=== PATIENT | male | born 1960 | race Native Hawaiian/Other Pacific Islander ===

== ENCOUNTER 2017-10-17 00:24 | Emergency (ER) | payer MEDICAID ==
--- NOTE | 2017-10-17 00:31 | ED Physician Documentation ---
PD HPI CHEST PAIN - Stated complaint Stated Complaint: CHEST PX - Chief complaint Chief Complaint: Cardiac - History obtained from History obtained from: Patient - History of Present Illness Timing - onset: How many hours ago (2) Timing - details: Abrupt onset, Still present Quality: Pressure, Sharp Location: Left chest Radiation: Left upper extremity Improved by: Nothing Associated symptoms: Shortness of air. No: Diaphoresis, Nausea, Vomiting Similar symptoms before: Has not had sx before Recently seen: Not recently seen - Additional information Additional information: patient is a 57 year old male with no significant past medical history who is presenting to the emergency department for chest pain. patient states that he got up about two hours ago, had a Popsicle and developed left sided chest pain. patient states that it is severe in nature and radiates to his left arm. Review of Systems Constitutional: denies: Fever, Chills Eyes: reports: Reviewed and negative Ears: reports: Reviewed and negative Nose: reports: Reviewed and negative Throat: reports: Reviewed and negative Cardiac: reports: Chest pain / pressure. denies: Palpitations, Pedal edema Respiratory: denies: Dyspnea, Cough, Wheezing GI: denies: Nausea, Vomiting : reports: Reviewed and negative Skin: reports: Reviewed and negative Musculoskeletal: reports: Extremity pain Neurologic: reports: Reviewed and negative Psychiatric: reports: Reviewed and negative PD PAST MEDICAL HISTORY - Past Medical History Cardiovascular: Hypertension GI: GERD Musculoskeletal: Other - Past Surgical History Past Surgical History: Yes General: Appendectomy - Present Medications Home Medications: Ambulatory Orders Medication Instructions Recorded Confirmed No Known Home Medications [No 11/06/15 10/17/17 Known Home Medications] - Allergies Allergies/Adverse Reactions: Allergies Allergy/AdvReac Type Severity Reaction Status Date / Time No Known Drug Allergies Allergy Verified 10/17/17 00:31 - Social History Does the pt smoke?: Yes Smoking Status: Current some day smoker Does the pt drink ETOH?: Yes Does the pt have substance abuse?: Yes - Immunizations Immunizations are current?: Yes PD ED PE NORMAL - HEENT HEENT: Atraumatic - Respiratory Respiratory: No respiratory distress, Clear bilaterally - Abdomen Abdomen: Soft, Non distended - Derm Derm: Normal color, Warm and dry - Extremities Extremities: No edema - Neuro Neuro: Alert and oriented X 3, Normal speech PD ED PE EXPANDED - General General: Alert, In Pain - HEENT HEENT: Dry mucous membranes - Neck Neck: JVD present - Cardiac Cardiac: Tachy Results - Vitals Vitals: Vital Signs - 24 hr 10/17/17 10/17/17 00:25 00:41 Temperature 37.1 C 36.7 C Heart Rate 119 H 120 H Respiratory 18 23 Rate Blood Pressure 191/129 H 200/133 H O2 Saturation 100 95 Oxygen O2 Source Room air Oxygen Flow Rate 2 - EKG (time done) 0029 Rate: Rate (enter#) (114) Rhythm: Sinus tachycardia [place]: Normal Ischemia: ST elevation c/w ischemia, ST depression Other comments: Other comments (posterior inferior STEMI) Compare to prior EKG: Old EKG unavailable Computer interpretation: Agree with computer - Labs Labs: Laboratory Tests 10/17/17 10/17/17 10/17/17 00:36 00:36 00:36 WBC 11.1 H RBC 5.30 Hgb 15.1 Hct 46.0 MCV 86.8 MCH 28.5 MCHC 32.8 RDW 13.6 Plt Count 239 MPV 8.0 Neut # 8.6 H Lymph # 0.9 L [place] # 1.2 H Eos # 0.3 Baso # 0.1 Absolute Nucleated RBC 0.00 Nucleated RBC % 0.0 PT INR APTT Sodium 133 L Potassium 3.8 Chloride 99 L Carbon Dioxide 27 Anion Gap 7.0 BUN 18 Creatinine 1.4 H Estimated GFR (MDRD) 52 L Glucose 135 H Calcium 8.7 Total Bilirubin 0.5 AST 33 ALT 39 Alkaline Phosphatase 73 CK-MB (CK-2) 7.9 H Troponin I 1.58 H* B-Natriuretic Peptide Total Protein 7.5 Albumin 3.9 Globulin 3.6 Albumin/Globulin Ratio 1.1 Lipase 29 10/17/17 10/17/17 00:36 00:36 WBC RBC Hgb Hct MCV MCH MCHC RDW Plt Count MPV Neut # Lymph # [place] # Eos # Baso # Absolute Nucleated RBC Nucleated RBC % PT 10.7 INR 0.9 APTT 28.6 Sodium Potassium Chloride Carbon Dioxide Anion Gap BUN Creatinine Estimated GFR (MDRD) Glucose Calcium Total Bilirubin AST ALT Alkaline Phosphatase CK-MB (CK-2) Troponin I B-Natriuretic Peptide 151 H Total Protein Albumin Globulin Albumin/Globulin Ratio Lipase PD MEDICAL DECISION MAKING - ED course Complexity details: reviewed old records, reviewed results, re-evaluated patient , considered differential, d/w patient, d/w security consultant ED course: Patient was immediately seen and examined at bedside. ekg was performed and was consistent with inferior/posterior [place]. STEMI was called. [facility] was contacted and the case was discussed with Dr. Sweeney who agreed with asprin and heparin but stated to hold plavix. Patient was placed on a heparin drip, treated with aspirin and morphine. Patient was transferred to [facility] in critical condition. Departure - Departure Disposition: 02 Transfer Acute Care Hosp Clinical Impression: STEMI (ST elevation myocardial infarction) Condition: Critical
[2017-10-17] MEDS ORDERED: ASPIRIN CHEW 81 MG TABLET PO STA (00:32)
[2017-10-17] MEDS ORDERED: HEPARIN 5,000 UNIT/ML VIAL IVP STA (00:32)
[2017-10-17] MEDS ORDERED: HEPARIN 25000UNITS/500ML (D5W) 25,000 UNIT/500 ML BAG IV STA (00:32)
[2017-10-17] MEDS ORDERED: MORPHINE 10 MG/ML VIAL IVP STA (00:34)
[2017-10-17] MEDS ORDERED: ASPIRIN CHEW 81 MG TABLET ONE (00:41)
[2017-10-17] MEDS ORDERED: CLOPIDOGREL 300 MG TABLET PO ONE (00:41)
[2017-10-17] MEDS ORDERED: HEPARIN 5,000 UNIT/ML VIAL ONE (00:41)
[2017-10-17] MEDS ORDERED: NITROGLYCERIN SL 0.4 MG TABLET SL ONE (00:41)
[2017-10-17] MEDS ORDERED: METOPROLOL TARTRATE 50 MG TABLET ONE (00:41)
[2017-10-17 00:42] VITALS: BP 200/133
[2017-10-17] MEDS ORDERED: HEPARIN 25000UNITS/500ML (D5W) 25,000 UNIT/500 ML BAG IV ONE (00:42)
[2017-10-17 00:45] LABS: BASOPHILS # (AUTO) 0.1 10^3/uL (0.0-0.1); BASOPHILS % (AUTO) 0.9 %; EOSINOPHILS # (AUTO) 0.3 10^3/uL (0.0-0.7); EOSINOPHILS % (AUTO) 2.6 %; HGB - HEMOGLOBIN 15.1 g/dL (14.0-18.0); LYMPHOCYTES # (AUTO) 0.9 10^3/uL (1.5-3.5); LYMPHOCYTES % (AUTO) 8.1 %; MEAN CORPUSCULAR HEMOGLOBIN 28.5 pg (27.0-31.0); MEAN CORPUSCULAR HGB CONC 32.8 g/dL (32.0-36.0); MEAN CORPUSCULAR VOLUME 86.8 fL (80.0-94.0); MONOCYTES # (AUTO) 1.2 10^3/uL (0.0-1.0); MONOCYTES % (AUTO) 10.7 %; NEUTROPHILS # (AUTO) 8.6 10^3/uL (1.5-6.6); NEUTROPHILS % (AUTO) 77.7 %; PLT - PLATELET COUNT 239 10^3/uL (130-450); RED CELL DISTRIBUTION WIDTH 13.6 % (12.0-15.0); WHITE BLOOD COUNT 11.1 x10^3/uL (4.8-10.8)
[2017-10-17 00:51] LABS: INR 0.9 (0.8-1.2); PT - PROTHROMBIN TIME 10.7 secs (9.9-12.6)
--- NOTE | 2017-10-17 01:01 | XRAY Preliminary Report ---
Exam: XR CHEST 1 VIEW X-RAY IMPRESSION: 1. No acute abnormality seen in the chest. [facility] SITE ID: [id number]
--- NOTE | 2017-10-17 01:01 | XRAY Report ---
EXAM: CHEST RADIOGRAPHY EXAM DATE: 10/17/2017 12:42 AM. CLINICAL HISTORY: Chest pain. COMPARISON: 05/07/2012. TECHNIQUE: 1 view. FINDINGS: Lungs/Pleura: No alveolar consolidation or pleural effusion seen. No pneumothorax. Mediastinum: Within exam limitations, the cardiomediastinal contour is normal. Other: None. IMPRESSION: 1. No acute abnormality seen in the chest. [facility] Referring Provider Line: [phone] SITE ID: [id number]
[2017-10-17 01:05] LABS: ALBUMIN 3.9 g/dL (3.2-5.5); ALBUMIN/GLOBULIN RATIO 1.1 (1.0-2.2); BILIRUBIN,TOTAL 0.5 mg/dL (0.2-1.0); CALCIUM 8.7 mg/dL (8.5-10.3); CREATININE 1.4 mg/dL (0.6-1.2); TOTAL PROTEIN 7.5 g/dL (6.7-8.2)
[2017-10-17 01:10] LABS: CREATINE KINASE MB 7.9 ng/mL (0.6-6.3)
[2017-10-17 01:15] LABS: TROPONIN I 1.58 ng/mL (<0.49)
[2017-10-17] MEDS ORDERED: METOPROLOL TARTRATE 50 MG TABLET PO STA (01:15)
== END 2017-10-17 00:48 | disposition short-term general hospital (02) ==
LOC: ED 00:24
DX: I21.11 ST elevation (STEMI) myocardial infarction involving right coronary artery (principal); I10 Essential (primary) hypertension; K21.9 Gastro-esophageal reflux disease without esophagitis; F17.200 Nicotine dependence, unspecified, uncomplicated
CPT/HCPCS: 36415; 71045; 80053; 82553; 83690; 83880; 84484; 85025; 85610; 85730; 93005; 96374; 96375; 96376; 99284; 99285; A9270

== ENCOUNTER 2017-10-17 00:49 | Outpatient (CLI) | payer MEDICAID | END 2017-10-17 00:50 | disposition short-term general hospital (02) | LOC: EMS 00:49 | PROVIDERS: ATTEND Surgery | DX: I21.3 ST elevation (STEMI) myocardial infarction of unspecified site (principal) | CPT/HCPCS: A0425; A0427 ==

== ENCOUNTER 2017-10-29 03:29 | Emergency (ER) | payer MEDICAID ==
--- NOTE | 2017-10-29 03:37 | ED Physician Documentation ---
PD HPI ABD PAIN - Stated complaint Stated Complaint: ABD PX - Chief complaint Chief Complaint: Abd Pain - History obtained from History obtained from: Patient - History of Present Illness Timing - onset: How many days ago (2) Timing - duration: Days (2) Timing - details: Abrupt onset, Intermittant Pain level now: 8 Quality: Pain, Other (burning) Location: Epigastric Radiation: Chest (lower chest, midline) Improved by: Other (no ameliorating factors) Worsened by: Other (no exacerbating factors) Associated symptoms: Chest pain. No: Fever, Nausea, Vomiting, Diarrhea, Constipation Similar symptoms before: Has not had sx before (patient says this feels different from the pain he had when he presented to this ED earlier this month) Recently seen: Emergency Dept, Transferred - Additional information Additional information: presented to this ED 10/17/17 with chest pain and transferred to [facility] for inferior wall AR. He had stent placed and was discharged the next day. He presents at this time due to 2 days of episodic epigastric burning radiating to lower anterior midline chest. Review of Systems Constitutional: reports: Reviewed and negative Eyes: reports: Reviewed and negative Ears: reports: Reviewed and negative Nose: reports: Reviewed and negative Cardiac: reports: Chest pain / pressure. denies: Palpitations, Pedal edema, Calf pain Respiratory: reports: Reviewed and negative GI: reports: Abdominal Pain (epigastric burning). denies: Nausea, Vomiting, Constipation, Diarrhea : denies: Dysuria, Frequency Skin: reports: Reviewed and negative Musculoskeletal: reports: Reviewed and negative Neurologic: reports: Reviewed and negative PD PAST MEDICAL HISTORY - Past Medical History Cardiovascular: Hypertension GI: GERD Musculoskeletal: Other - Past Surgical History Past Surgical History: Yes General: Appendectomy - Present Medications Home Medications: Ambulatory Orders Medication Instructions Recorded Confirmed Aspirin Chewable [[place] Hans 1 tab PO DAILY 10/29/17 10/29/17 Aspirin] Atorvastatin Calcium 1 tab PO QPM 10/29/17 10/29/17 Clopidogrel Bisulfate [Clopidogrel] 1 tab PO DAILY 10/29/17 10/29/17 Lisinopril 1 tab PO DAILY 10/29/17 10/29/17 Metoprolol Tartrate 50 mg PO BID 10/29/17 10/29/17 - Allergies Allergies/Adverse Reactions: Allergies Allergy/AdvReac Type Severity Reaction Status Date / Time No Known Drug Allergies Allergy Verified 10/29/17 03:49 - Social History Does the pt smoke?: Yes Smoking Status: Current some day smoker Does the pt drink ETOH?: Yes Does the pt have substance abuse?: Yes - Immunizations Immunizations are current?: Yes - POLST Patient has POLST: No PD ED PE NORMAL - Vitals Vital signs reviewed: Yes - General General: Alert and oriented X 3, No acute distress, Well developed/nourished - HEENT HEENT: Moist mucous membranes - Neck Neck: Supple, no meningeal sign - Cardiac Cardiac: RRR, No murmur, No gallop, No rub - Respiratory Respiratory: No respiratory distress, Clear bilaterally - Abdomen Abdomen: Normal bowel sounds, Soft, Non tender, Non distended - Back Back: No CVA TTP - Derm Derm: Normal color, Warm and dry - Extremities Extremities: No edema - Neuro Neuro: Alert and oriented X 3 Results - Vitals Vitals: Oxygen O2 Source Room air - EKG (time done) #1 Rate: Rate (enter#) (79) Rhythm: NSR [place]: LAD Intervals: Normal IN QRS: LVH Ischemia: ST elevation c/w ischemia (II, III, aVF), Q waves (II, III, aVF), Other (reciprocal changes V2-V5) #2 Rate: Rate (enter#) (77) Rhythm: NSR [place]: LAD Intervals: Normal IN QRS: LVH Ischemia: ST elevation c/w ischemia (II, III, aVF), Q waves (II, III, aVF), Other (reciprocal changes V2-V5) - Labs Labs: Laboratory Tests 10/29/17 10/29/17 10/29/17 03:40 03:40 03:40 WBC 16.0 H RBC 4.98 Hgb 14.1 Hct 42.4 MCV 85.0 MCH 28.4 MCHC 33.4 RDW 13.6 Plt Count 419 MPV 8.1 Neut # 11.6 H Lymph # 2.2 [place] # 1.7 H Eos # 0.3 Baso # 0.2 H Absolute Nucleated RBC 0.01 Nucleated RBC % 0.1 PT 11.0 INR 1.0 APTT 28.9 Sodium 137 Potassium 3.9 Chloride 103 Carbon Dioxide 26 Anion Gap 8.0 BUN 17 Creatinine 1.1 Estimated GFR (MDRD) 69 L Glucose 105 H Calcium 8.9 Total Bilirubin 0.2 AST 33 ALT 55 Alkaline Phosphatase 82 Total Creatine Kinase 125 CK-MB (CK-2) Troponin I Total Protein 7.6 Albumin 3.3 Globulin 4.3 H Albumin/Globulin Ratio 0.8 L Lipase 46 10/29/17 03:40 WBC RBC Hgb Hct MCV MCH MCHC RDW Plt Count MPV Neut # Lymph # [place] # Eos # Baso # Absolute Nucleated RBC Nucleated RBC % PT INR APTT Sodium Potassium Chloride Carbon Dioxide Anion Gap BUN Creatinine Estimated GFR (MDRD) Glucose Calcium Total Bilirubin AST ALT Alkaline Phosphatase Total Creatine Kinase CK-MB (CK-2) 5.2 Troponin I 3.16 H* Total Protein Albumin Globulin Albumin/Globulin Ratio Lipase PD MEDICAL DECISION MAKING - ED course Complexity details: reviewed old records, reviewed results, re-evaluated patient , considered differential, d/w patient ED course: Presents with epigastric pain radiating to midline low chest, had stent placed at [facility] for IWMI. Has EKG changes tonight in inferior leads with reciprocal changes in same leads as previous. Also has elevated troponin. I discussed this case with Dr. Amanda (on-call perl programmer at [facility]), recommends I give either GI cocktail or NTG and he will call back after he reviews joe's EKG. On subsequent discussion, after he reviewed EKG, patient reports pain went from 8 down to 6 but back to [address] Amanda recommends give NTG and to contact [facility] gluten settling tender. I discussed the case with Dr. Waldron, on-call interventionalist at [facility]. He says that if pain is persisting, send patient to [facility]. Unfortunately there are no beds available at [facility]. I then discussed the case again with Dr. Amanda, who advises consideration of sending patient to a different hospital if [facility] has no bed availability (no beds again confirmed with [facility] transfer center). Case d/w on-call perl programmer at [facility]. As there is still question as to whether joe's EKG findings and TNI represent residual findings of previous AR or new/recurrent ischemia/infarction, he recommends transfer patient to [facility] ED and ED physician can repeat these tests and contact cardiology to discuss recommendations based on that set of tests and comparison of those results to the test results obtained here at [facility]. Case D/W Dr. Hyatt (ED physician at [facility]), agrees with transfer to [facility] ED with this plan. Of note, patient reported improvement with SLNTG. surveillance monitor demonstrated frequent skipped beats only after NTG given, but these did not correlate with any symptoms and his blood pressure remained normal. Shortly before ambulance was to arrive for transfer, patient asked to be discharged home. I reviewed with him my recommendation and that of the doctors I had been in contact with (the recommendation being transfer for further testing and possible treatment depending on results of more tests), and he expressed understanding of this but wants to leave AMA. Risks of leaving AMA discussed, including worsening symptoms, heart attack, permanent disability, ; he expresses understanding of these risks and signs AMA form. Patient was very polite and cooperative during ED stay and at time of leaving AMA. I encouraged him to return at any time he wants to be reevaluated. Departure - Departure Disposition: 07 Against Medical Advice Clinical Impression: Chest pain Qualifiers: Chest pain type: unspecified Qualified Code(s): R07.9 - Chest pain, unspecified Condition: Stable Instructions: ED Chest Pain Atypical Unkn Cause Comments: Please return to the emergency department at any time you feel you need to be reevaluated. You should take Prilosec once a day for two weeks. This would likely help your symptoms if they are due to reflux ("heartburn"). Prilosec is an over-the- counter medication and does not require a prescription. Discharge Date/Time: 10/29/17 08:33
[2017-10-29 03:50] LABS: BASOPHILS # (AUTO) 0.2 10^3/uL (0.0-0.1); BASOPHILS % (AUTO) 1.4 %; EOSINOPHILS # (AUTO) 0.3 10^3/uL (0.0-0.7); HGB - HEMOGLOBIN 14.1 g/dL (14.0-18.0); LYMPHOCYTES # (AUTO) 2.2 10^3/uL (1.5-3.5); LYMPHOCYTES % (AUTO) 13.9 %; MEAN CORPUSCULAR HEMOGLOBIN 28.4 pg (27.0-31.0); MEAN CORPUSCULAR HGB CONC 33.4 g/dL (32.0-36.0); MEAN PLATELET VOLUME 8.1 fL (7.4-11.4); MONOCYTES # (AUTO) 1.7 10^3/uL (0.0-1.0); MONOCYTES % (AUTO) 10.4 %; NEUTROPHILS # (AUTO) 11.6 10^3/uL (1.5-6.6); NEUTROPHILS % (AUTO) 72.3 %; PLT - PLATELET COUNT 419 10^3/uL (130-450); RED BLOOD COUNT 4.98 10^6/uL (4.70-6.10); RED CELL DISTRIBUTION WIDTH 13.6 % (12.0-15.0)
[2017-10-29 03:58] LABS: ALBUMIN 3.3 g/dL (3.2-5.5); ALBUMIN/GLOBULIN RATIO 0.8 (1.0-2.2); BILIRUBIN,TOTAL 0.2 mg/dL (0.2-1.0); CALCIUM 8.9 mg/dL (8.5-10.3); CREATININE 1.1 mg/dL (0.6-1.2); TOTAL PROTEIN 7.6 g/dL (6.7-8.2)
[2017-10-29] MEDS ORDERED: MAG HYDROX/AL HYDROX/SIMETH 30 ML UDC PO STA (04:05)
[2017-10-29 04:06] LABS: CREATINE KINASE MB 5.2 ng/mL (0.6-6.3)
[2017-10-29] MEDS ORDERED: PHENobarb/HYOSCY/ATROPINE/SCOP 5 ML UDC PO STA (04:06)
[2017-10-29] MEDS ORDERED: LIDOCAINE VISCOUS 2% 15 ML UDC MM STA (04:06)
[2017-10-29 04:08] LABS: TROPONIN I 3.16 ng/mL (<0.49)
[2017-10-29] MEDS ORDERED: NITROGLYCERIN SL 0.4 MG TABLET SL STA (05:18)
[2017-10-29 07:43] VITALS: BP 130/87
== END 2017-10-29 08:33 | disposition left against medical advice (07) ==
LOC: ED 03:29
DX: R07.9 Chest pain, unspecified (principal); Z53.29 Procedure and treatment not carried out because of patient's decision for other reasons; I10 Essential (primary) hypertension; K21.9 Gastro-esophageal reflux disease without esophagitis; Z79.82 Long term (current) use of aspirin; F17.200 Nicotine dependence, unspecified, uncomplicated
CPT/HCPCS: 36415; 80053; 82550; 82553; 83690; 84484; 85025; 85610; 85730; 93005; 99285; A9270

== ENCOUNTER 2018-08-30 12:58 | Emergency (ER) | payer MEDICAID ==
--- NOTE | 2018-08-30 14:46 | ED Physician Documentation ---
PD HPI DYSPNEA - Stated complaint Stated Complaint: SOA FEVER - Chief complaint Chief Complaint: Resp - History obtained from History obtained from: Patient - History of Present Illness Timing - onset: How many days ago (2) Timing - duration: Days (2) Timing - details: Still present Associated symptoms: Fever, Cough, Chest pain / discomfort (with cough) - Additional information Additional information: The patient is a 58-year-old male, who is a smoker, who presents with cough for at least 2 days, with occasional sputum production. He reports associated shortness of breath, fever and chills, and reports chest pain with coughing. He denies headache, sore throat, nausea or vomiting. He states, "I think I need an antibiotic." He has had similar symptoms in the past. Past medical history is significant for inferior [place] in October 2017. Review of Systems Constitutional: reports: Fever, Chills, Myalgias Ears: denies: Tinnitus/ringing Nose: denies: Congestion Throat: denies: Sore throat Cardiac: reports: Chest pain / pressure (with coughing) Respiratory: reports: Dyspnea, Cough GI: denies: Abdominal Pain, Nausea, Vomiting : denies: Dysuria Skin: denies: Rash Musculoskeletal: denies: Back pain, Extremity swelling Neurologic: denies: Headache PD PAST MEDICAL HISTORY - Past Medical History Cardiovascular: Hypertension, [place] Endocrine/Autoimmune: None GI: GERD Musculoskeletal: Other - Past Surgical History Past Surgical History: Yes General: Appendectomy Cardiovascular: Coronary stent - Present Medications Home Medications: Ambulatory Orders Medication Instructions Recorded Confirmed Aspirin Chewable [[place] [facility] 1 tab PO DAILY 10/29/17 10/29/17 Aspirin] Atorvastatin Calcium 1 tab PO QPM 10/29/17 10/29/17 Clopidogrel Bisulfate [Clopidogrel] 1 tab PO DAILY 10/29/17 10/29/17 Lisinopril 1 tab PO DAILY 10/29/17 10/29/17 Metoprolol Tartrate 50 mg PO BID 10/29/17 10/29/17 Doxycycline Hyclate 100 mg PO BID #20 capsule 08/30/18 Metoprolol Tartrate 50 mg PO BID #60 tablet 08/30/18 - Allergies Allergies/Adverse Reactions: Allergies Allergy/AdvReac Type Severity Reaction Status Date / Time No Known Drug Allergies Allergy Verified 10/29/17 03:49 - Social History Does the pt smoke?: Yes Smoking Status: Current some day smoker Does the pt drink ETOH?: Yes Does the pt have substance abuse?: Yes - Immunizations Immunizations are current?: Yes - POLST Patient has POLST: No PD ED PE NORMAL - Vitals Vital signs reviewed: Yes (hypertensive) - General General: Alert and oriented X 3, Well developed/nourished - HEENT HEENT: Atraumatic, Pharynx benign - Neck Neck: Supple, no meningeal sign, No adenopathy, No JVD - Cardiac Cardiac: RRR, No murmur - Respiratory Respiratory: Clear bilaterally, Other (Coarse sounding cough) - Abdomen Abdomen: Soft, Non tender - Back Back: No CVA TTP - Derm Derm: No rash - Extremities Extremities: No edema, No calf tenderness / cord - Neuro Neuro: Alert and oriented X 3, No motor deficit, Normal speech Results - Vitals Vitals: Oxygen O2 Source Room air - EKG (time done) 13:25 Rate: Rate (enter#) (87) Rhythm: NSR, LAE Intervals: Other (IVCD) Ischemia: ST depression (Borderline ST depression anterior precordial leads, V1- V3.) Compare to prior EKG: Other (Improved compared to previous EKG of 10/29/17.) Computer interpretation: Agree with computer 16:07 Rate: Rate (enter#) (94) Rhythm: NSR Intervals: Other (Nonspecific IVCD) Ischemia: ST depression (<1mm ST depression in posterior leads V2R and V3R.) Compare to prior EKG: Unchanged from prior EKG Computer interpretation: Agree with computer - Labs Labs: Laboratory Tests 08/30/18 08/30/18 08/30/18 15:15 15:15 15:15 WBC 10.9 H RBC 5.92 Hgb 17.0 Hct 51.7 MCV 87.3 MCH 28.7 MCHC 32.8 RDW 13.9 Plt Count 206 MPV 9.0 Neut # (Auto) 7.3 H Lymph # (Auto) 1.9 [place] # (Auto) 1.4 H Eos # (Auto) 0.2 Baso # (Auto) 0.1 Absolute Nucleated RBC 0.01 Nucleated RBC % 0.1 Sodium 136 Potassium 3.6 Chloride 97 L Carbon Dioxide 28 Anion Gap 11.0 BUN 17 Creatinine 1.4 H Estimated GFR (MDRD) 52 L Glucose 109 H Calcium 8.9 Total Bilirubin 0.3 AST 39 ALT 26 Alkaline Phosphatase 87 Troponin I 0.40 Total Protein 8.2 Albumin 3.7 Globulin 4.5 H Albumin/Globulin Ratio 0.8 L Lipase 37 08/30/18 17:55 WBC RBC Hgb Hct MCV MCH MCHC RDW Plt Count MPV Neut # (Auto) Lymph # (Auto) [place] # (Auto) Eos # (Auto) Baso # (Auto) Absolute Nucleated RBC Nucleated RBC % Sodium Potassium Chloride Carbon Dioxide Anion Gap BUN Creatinine Estimated GFR (MDRD) Glucose Calcium Total Bilirubin AST ALT Alkaline Phosphatase Troponin I 0.35 Total Protein Albumin Globulin Albumin/Globulin Ratio Lipase - Rads (name of study) CXR Radiology: Prelim report reviewed, EMP read contemporaneously, See rad report (No infiltrate or effusion.) PD MEDICAL DECISION MAKING - ED course Complexity details: reviewed old records, reviewed results, re-evaluated patient, considered differential, d/w patient, d/w family ED course: The patient's presentation is most consistent with bronchitis, with purulent sputum. His chest x-ray reveals no evidence of pneumonia. He is a cigarette smoker, making him a higher risk patient for bacterial bronchitis. In addition he has persistent hypertension with blood pressure in the 170s over 1 teens. With his history of heart disease, an electrocardiogram was performed and it was abnormal, but actually looked better than previous EKG of October 29, 2017. A troponin level was at the high end of the normal range however, at 0. 40. A second EKG with posterior leads was performed and reveals less than [address] depression in posterior chest leads V2R and V3R. A second troponin level was lower than the first, at 0.35. I doubt acute myocardial infarction, but I am concerned about the patient's persistent hypertension. Treatment in the emergency department included administration of metoprolol 50 mg orally, and doxycycline 100 mg orally. I discussed with him and his the importance of getting his blood pressure under control, and following up with a primary physician. I also discussed the expected course of respiratory illness, antibiotic treatment, outpatient follow-up, as well as potentially worrisome signs or symptoms that should prompt reevaluation in the emergency department. He is being discharged with prescriptions for both metoprolol and doxycycline. I encouraged him to try to stop smoking cigarettes. Departure - Departure Disposition: 01 Home, Self Care Clinical Impression: Bronchitis Hypertension Qualifiers: Hypertension type: unspecified Qualified Code(s): I10 - Essential (primary) hypertension Condition: Stable Instructions: ED COPD Flare, ED Hypertension Conf Out Of Control Follow-Up: [facility] [Provider Group] Prescriptions: Doxycycline Hyclate 100 mg PO BID #20 capsule Metoprolol Tartrate 50 mg PO BID #60 tablet Comments: Take metoprolol twice daily as prescribed. Take doxycycline twice daily as prescribed. You can use ibuprofen, up to 800 mg 3 times daily if needed for fever or discomfort. Try to stop smoking cigarettes. Follow-up with primary physician within 2 weeks if possible, or as soon as you can get an appointment. Call to schedule an appointment. Return to the emergency department if you develop increasing difficulty breathing, persistent chest pain, or otherwise worsening symptoms. Discharge Date/Time: 08/30/18 19:06
--- NOTE | 2018-08-30 15:44 | XRAY Report ---
Reason: dyspnea, cough. Procedure Date: 08/30/2018 Accession Number: [id number] / [id number] Procedure: XR - Chest 2 View X-Ray CPT Code: 74083 FULL RESULT: EXAM: CHEST RADIOGRAPHY EXAM DATE: 08/30/2018 03:15 PM. CLINICAL HISTORY: Dyspnea, cough. COMPARISON: CHEST 1 VIEW 10/17/2017 12:34 AM. TECHNIQUE: 2 views. FINDINGS: Lungs/Pleura: No focal opacities evident. No pleural effusion. No pneumothorax. Normal volumes. Mediastinum: Heart and mediastinal contours are stable. Other: None. IMPRESSION: No pneumonia. [facility]
[2018-08-30 16:19] LABS: BASOPHILS # (AUTO) 0.1 10^3/uL (0.0-0.1); BASOPHILS % (AUTO) 0.5 %; EOSINOPHILS # (AUTO) 0.2 10^3/uL (0.0-0.7); EOSINOPHILS % (AUTO) 2.2 %; LYMPHOCYTES # (AUTO) 1.9 10^3/uL (1.5-3.5); LYMPHOCYTES % (AUTO) 17.7 %; MEAN CORPUSCULAR HEMOGLOBIN 28.7 pg (27.0-31.0); MEAN CORPUSCULAR HGB CONC 32.8 g/dL (32.0-36.0); MEAN CORPUSCULAR VOLUME 87.3 fL (80.0-94.0); MONOCYTES # (AUTO) 1.4 10^3/uL (0.0-1.0); MONOCYTES % (AUTO) 12.8 %; NEUTROPHILS # (AUTO) 7.3 10^3/uL (1.5-6.6); NEUTROPHILS % (AUTO) 66.8 %; PLT - PLATELET COUNT 206 10^3/uL (130-450); RED BLOOD COUNT 5.92 10^6/uL (4.70-6.10); RED CELL DISTRIBUTION WIDTH 13.9 % (12.0-15.0); WHITE BLOOD COUNT 10.9 x10^3/uL (4.8-10.8)
[2018-08-30 16:25] LABS: ALBUMIN 3.7 g/dL (3.2-5.5); ALBUMIN/GLOBULIN RATIO 0.8 (1.0-2.2); BILIRUBIN,TOTAL 0.3 mg/dL (0.2-1.0); CALCIUM 8.9 mg/dL (8.5-10.3); CREATININE 1.4 mg/dL (0.6-1.2); TOTAL PROTEIN 8.2 g/dL (6.7-8.2)
[2018-08-30] MEDS ORDERED: SODIUM CHLORIDE 0.9% 1,000 ML IV ONE (17:11)
[2018-08-30] MEDS ORDERED: METOPROLOL TARTRATE 50 MG TABLET PO STA (18:35)
[2018-08-30] MEDS ORDERED: DOXYCYCLINE 100 MG TABLET PO STA (18:37)
[2018-08-30 19:07] VITALS: BP 177/117
== END 2018-08-30 19:06 | disposition home or self-care (01) ==
LOC: ED 12:58
DX: J40 Bronchitis, not specified as acute or chronic (principal); I10 Essential (primary) hypertension; I25.2 Old myocardial infarction; R94.31 Abnormal electrocardiogram [ECG] [EKG]; F17.200 Nicotine dependence, unspecified, uncomplicated; Z95.5 Presence of coronary angioplasty implant and graft; Z79.82 Long term (current) use of aspirin
CPT/HCPCS: 36415; 71046; 80053; 83690; 84484; 85025; 93005; 96360; 99283; A9270

== ENCOUNTER 2019-11-28 15:18 | Inpatient (IN) | payer MEDICAID ==
[2019-11-28] MEDS ORDERED: METOPROLOL SUCCINATE 50 MG TABLET PO STA (16:01)
[2019-11-28] MEDS ORDERED: lisinopriL 5 MG TABLET PO STA (16:01)
--- NOTE | 2019-11-28 16:01 | ED Physician Documentation ---
History of Present Illness - Stated complaint Stated Complaint: BLOOD PRESSURE CONCERN - Chief complaint Chief Complaint: Cardiac - History obtained from History obtained from: Patient (59-year-old gentleman with history of hypertension, ran out of his meds about a month ago because his doctor's office closed. Noted his blood pressure was high today. He denies chest pain, headache, shortness of breath, pedal edema, urinary complaints, or abdominal complaints. Previous meds included lisinopril, unknown dose, metoprolol 50 mg twice a day) Review of Systems Constitutional: denies: Fever, Chills, Myalgias, Fatigue Cardiac: denies: Chest pain / pressure, Palpitations Respiratory: denies: Dyspnea, Cough GI: denies: Abdominal Pain PD PAST MEDICAL HISTORY - Past Medical History Cardiovascular: Hypertension, HI Endocrine/Autoimmune: None GI: GERD Musculoskeletal: Other - Past Surgical History Past Surgical History: Yes General: Appendectomy Cardiovascular: Coronary stent - Present Medications Home Medications: Ambulatory Orders Medication Instructions Recorded Confirmed Aspirin Chewable [St Hans 1 tab PO DAILY 10/29/17 10/29/17 Aspirin] Atorvastatin Calcium 1 tab PO QPM 10/29/17 10/29/17 Clopidogrel Bisulfate [Clopidogrel] 1 tab PO DAILY 10/29/17 10/29/17 Metoprolol Tartrate 50 mg PO BID 10/29/17 10/29/17 lisinopriL [Lisinopril] 1 tab PO DAILY 10/29/17 10/29/17 Doxycycline Hyclate 100 mg PO BID #20 capsule 08/30/18 Metoprolol Tartrate 50 mg PO BID #60 tablet 08/30/18 - Allergies Allergies/Adverse Reactions: Allergies Allergy/AdvReac Type Severity Reaction Status Date / Time No Known Drug Allergies Allergy Verified 11/28/19 15:31 - Social History Does the pt smoke?: Yes Smoking Status: Current some day smoker Does the pt drink ETOH?: Yes Does the pt have substance abuse?: Yes - Immunizations Immunizations are current?: Yes - POLST Patient has POLST: No PD ED PE NORMAL - Vitals Vital signs reviewed: Yes - General General: Alert and oriented X 3, No acute distress - HEENT HEENT: PERRL, EOMI - Neck Neck: Supple, no meningeal sign, No bony TTP - Cardiac Cardiac: RRR (Hyperdynamic precordium) - Respiratory Respiratory: No respiratory distress, Clear bilaterally - Abdomen Abdomen: Non tender - Extremities Extremities: No edema, No calf tenderness / cord - Neuro Neuro: Alert and oriented X 3, Normal speech Results - Vitals Vitals: Vital Signs - 24 hr 11/28/19 11/28/19 11/28/19 15:31 16:00 16:30 Temperature 36.5 C Heart Rate 108 H 110 H 112 H Respiratory 14 20 23 Rate Blood Pressure 250/139 H 223/127 H 223/131 H O2 Saturation 94 97 96 11/28/19 11/28/19 17:00 17:30 Temperature Heart Rate 88 92 Respiratory 20 16 Rate Blood Pressure 233/133 H 201/128 H O2 Saturation 97 93 Oxygen O2 Source Room air - EKG (time done) 1545 Rate: Other (Twelve-lead EKG done at 1545 hrs. discloses sinus tachycardia with a rate of 109. He has left ventricular hypertrophy and some anterior and lateral ST depression. Compared with last EKG in the chart dated August 302018, the morphology is mostly similar but the anterior ST depression and to an extent the lateral ST depression is more significant. In the setting of no symptoms that would be an anginal equivalent I have a low suspicion for an acute coronary issue) - Labs Labs: Laboratory Tests 11/28/19 11/28/19 11/28/19 15:50 15:58 15:58 WBC 12.6 H RBC 6.05 Hgb 17.6 Hct 53.7 H MCV 88.8 MCH 29.1 MCHC 32.8 RDW 12.8 Plt Count 328 MPV 10.0 Neut # (Auto) 10.2 H Lymph # (Auto) 1.5 [place] # (Auto) 0.7 Eos # (Auto) 0.1 Baso # (Auto) 0.1 Absolute Nucleated RBC 0.00 Nucleated RBC % 0.0 Sodium 141 Potassium 3.5 Chloride 103 Carbon Dioxide 27 Anion Gap 11.0 BUN 26 H Creatinine 1.3 H Estimated GFR (MDRD) 56 L Glucose 108 H Calcium 9.9 Magnesium 2.3 Total Bilirubin 0.9 AST 41 ALT 34 Alkaline Phosphatase 94 Troponin I High Sens Total Protein 8.7 H Albumin 4.6 Globulin 4.1 Albumin/Globulin Ratio 1.1 Lipase 37 TSH Urine Color YELLOW Urine Clarity CLEAR Urine pH 8.5 H Ur Specific [place] 1.020 Urine Protein 100 H Urine Glucose (UA) NEGATIVE Urine Ketones NEGATIVE Urine Occult Blood TRACE-INTA Urine Nitrite NEGATIVE Urine Bilirubin NEGATIVE Urine Urobilinogen 0.2 (NORMAL) Ur Leukocyte Esterase NEGATIVE Urine RBC 0-5 Urine WBC 0-3 Ur Squamous Epith Cells NONE SEEN Amorphous Sediment Marked Urine Bacteria None Seen 11/28/19 11/28/19 11/28/19 15:58 15:58 17:04 WBC RBC Hgb Hct MCV MCH MCHC RDW Plt Count MPV Neut # (Auto) Lymph # (Auto) [place] # (Auto) Eos # (Auto) Baso # (Auto) Absolute Nucleated RBC Nucleated RBC % Sodium Potassium Chloride Carbon Dioxide Anion Gap BUN Creatinine Estimated GFR (MDRD) Glucose Calcium Magnesium Total Bilirubin AST ALT Alkaline Phosphatase Troponin I High Sens 61.5 H* 66.3 H* Total Protein Albumin Globulin Albumin/Globulin Ratio Lipase TSH 0.97 Urine Color Urine Clarity Urine pH Ur Specific Morgan[place] Urine Protein Urine Glucose (UA) Urine Ketones Urine Occult Blood Urine Nitrite Urine Bilirubin Urine Urobilinogen Ur Leukocyte Esterase Urine RBC Urine WBC Ur Squamous Epith Cells Amorphous Sediment Urine Bacteria PD MEDICAL DECISION MAKING - ED course ED course: 59-year-old gentleman with uncontrolled hypertension because of medical noncompliance. He has no cardiac symptoms but he has some modest EKG changes in the setting of an elevated troponin and probably deserves inpatient therapy as this is some level of endorgan damage. He was administered divided doses of IV labetalol after initial oral therapy was ineffective. - Critical Care Time(min): 45 Time Includes: Direct patient care, Review records, Reassess patient, Document care, Coordinate care, Medical consult Data interpretation: Labs, Pulse ox Procedures included in critical care time: Peripheral IV Procedures excluded from critical care time: EKG Departure - Departure Disposition: [facility] DC/Xfer Clinical Impression: Malignant hypertension, Elevated troponin Condition: Serious Discharge Date/Time: 11/28/19 18:34
[2019-11-28 16:09] LABS: BASOPHILS # (AUTO) 0.1 10^3/uL (0.0-0.1); BASOPHILS % (AUTO) 0.7 %; EOSINOPHILS # (AUTO) 0.1 10^3/uL (0.0-0.7); EOSINOPHILS % (AUTO) 0.6 %; HGB - HEMOGLOBIN 17.6 g/dL (14.0-18.0); LYMPHOCYTES # (AUTO) 1.5 10^3/uL (1.5-3.5); MEAN CORPUSCULAR HEMOGLOBIN 29.1 pg (27.0-31.0); MEAN CORPUSCULAR HGB CONC 32.8 g/dL (32.0-36.0); MEAN CORPUSCULAR VOLUME 88.8 fL (80.0-94.0); MONOCYTES # (AUTO) 0.7 10^3/uL (0.0-1.0); MONOCYTES % (AUTO) 5.6 %; NEUTROPHILS # (AUTO) 10.2 10^3/uL (1.5-6.6); NEUTROPHILS % (AUTO) 80.5 %; PLT - PLATELET COUNT 328 10^3/uL (130-450); RED BLOOD COUNT 6.05 10^6/uL (4.70-6.10); RED CELL DISTRIBUTION WIDTH 12.8 % (12.0-15.0); WHITE BLOOD COUNT 12.6 x10^3/uL (4.8-10.8)
[2019-11-28 16:22] LABS: ALBUMIN 4.6 g/dL (3.2-5.5); ALBUMIN/GLOBULIN RATIO 1.1 (1.0-2.2); BILIRUBIN,TOTAL 0.9 mg/dL (0.2-1.0); CALCIUM 9.9 mg/dL (8.5-10.3); CREATININE 1.3 mg/dL (0.6-1.2); MAGNESIUM 2.3 mg/dL (1.7-2.8); TOTAL PROTEIN 8.7 g/dL (6.7-8.2)
[2019-11-28] MEDS ORDERED: LABETALOL 20 MG/4 ML SYRINGE IVP STA (16:53)
--- NOTE | 2019-11-28 17:23 | XRAY Report ---
Reason: Chest pain Procedure Date: 11/28/2019 Accession Number: [id number] / [id number] Procedure: XR - Chest 1 View X-Ray CPT Code: 90515 Final Report FULL RESULT: EXAM: CHEST RADIOGRAPHY EXAM DATE: 11/28/2019 04:50 PM. CLINICAL HISTORY: Chest pain. COMPARISON: CHEST 2 VIEW 08/30/2018 3:21 PM. TECHNIQUE: 1 view. FINDINGS: Lungs/Pleura: No focal opacities evident. No pleural effusion. No pneumothorax. Mediastinum: Within exam limitations, the cardiomediastinal contour is normal. Other: None. IMPRESSION: Normal single view chest. RADIA
[2019-11-28] MEDS ORDERED: ONDANSETRON ODT 4 MG TABLET TL PRN (17:36)
[2019-11-28] MEDS ORDERED: SODIUM CHLORIDE FLUSH 0.9% 10 ML SYRINGE IVP PRN (17:36)
[2019-11-28] MEDS ORDERED: ACETAMINOPHEN 325 MG TABLET PO PRN (17:36)
[2019-11-28 18:26] LABS: BILIRUBIN,URINE NEGATIVE (NEGATIVE); GLUCOSE, URINE (UA) NEGATIVE (NEGATIVE); KETONES,URINE (UA) NEGATIVE (NEGATIVE); LEUKOCYTE ESTERASE, URINE NEGATIVE (NEGATIVE); NITRITE,URINE NEGATIVE (NEGATIVE); OCCULT BLOOD,URINE TRACE-INTA (NEGATIVE); PH,URINE 8.5 PH (5.0-7.5); PROTEIN,URINE 100 mg/dL (NEGATIVE); UROBILINOGEN,URINE 0.2 (NORMAL) E.U./dL (NORMAL)
[2019-11-28 18:29] LABS: CLARITY,URINE CLEAR (CLEAR)
[2019-11-28] MEDS ORDERED: LABETALOL 20 MG/4 ML SYRINGE IVP ONE (18:29)
[2019-11-28] MEDS: NICARDIPINE HCL 25 MG in SODIUM CHLORIDE 0.9% 240 ML IV SCH (18:45)
[2019-11-28 19:04] LABS: AMORPHOUS SEDIMENT,UR Marked /LPF; BACTERIA,URINE None Seen /HPF (None Seen); RBC,URINE 0-5 /HPF (0-5); SQUAMOUS EPITHELIAL CELL,UR NONE SEEN (<= Few)
--- NOTE | 2019-11-28 21:10 | HISTORY & PHYSICAL EXAMINATION ---
Chief Complaint - Chief Complaint Chief Complaint: Elevated blood pressure History of Present Illness - Admitted From Admitted From:: Emergency department - History Obtained From Records Reviewed: Emergency department History obtained from: Patient and ED physician Exam Limitations: None - History of Present Illness HPI Comment/Other: Patient is a 59-year-old male with a past medical history of AR x2 status post stent about 3 years ago, as well as hypertension who presents to the emergency department after checking his blood pressure at home and finding it to be very elevated in the neighborhood of greater than 220 systolic. He states that for the last 1 month his PCP office has been closed so he is run out of his blood pressure medications and has not been able to take any. He presented to the emergency room for evaluation of the blood pressure, and is somewhat a consistent with respect to symptoms initially stating he had no symptoms whatsoever. When inquired about why he checked his blood pressure this morning in the first place he states he checks it when he feels unwell, further adding that he generally felt a little bit off this morning complaining of diaphoresis and anxiety which have since resolved. In the emergency room, he initially did not report any chest pain, but only after inquiring he stated he maybe had a tiny bit of chest discomfort but did not complain of this actively. Initially in the emergency department, plans were to provide oral medications for the patient to control his blood pressure and send him home however an EKG was done showing some significant ST segment depressions, in the lateral leads. Troponin was initially done and reported at 61.5.Observation was requested due to the patient's significant elevated blood pressure and abnormal EKG but with normal troponin levels and no EKG findings of infarct. History - Past Medical History Cardiovascular: reports: Hypertension, AR Endocrine/Autoimmune: reports: None GI: reports: GERD Musculoskeletal: reports: Other MRSA Hx?: No - Past Surgical History General: reports: Appendectomy Cardiovascular: reports: Coronary stent - Family & Social History Family History: Mother: Cancer, Father: Cancer Living arrangement: At home Living Situation: With spouse/s.o. Social History Notes: Patient lives in [place]. 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 He has 4 children. His lives in [place]. - Substance History Use: Uses substance without health or social issues: Tobacco (Smokes about 3 cigarettes/day. Does not purchase cigarettes, and states he is more of a social smoker.) - POLST Patient has POLST: No POLST Status: Full Code Meds/Allgy - Home Medications Home Medications: Ambulatory Orders Medication Instructions Recorded Confirmed Aspirin Chewable [St Hans 1 tab PO DAILY 10/29/17 10/29/17 Aspirin] Atorvastatin Calcium 1 tab PO QPM 10/29/17 10/29/17 Clopidogrel Bisulfate [Clopidogrel] 1 tab PO DAILY 10/29/17 10/29/17 Metoprolol Tartrate 50 mg PO BID 10/29/17 10/29/17 lisinopriL [Lisinopril] 1 tab PO DAILY 10/29/17 10/29/17 Doxycycline Hyclate 100 mg PO BID #20 capsule 08/30/18 Metoprolol Tartrate 50 mg PO BID #60 tablet 08/30/18 - Allergies Allergies/Adverse Reactions: Allergies Allergy/AdvReac Type Severity Reaction Status Date / Time No Known Drug Allergies Allergy Verified 11/28/19 15:31 Review of Systems - Constitutional Constitutional: reports: Diaphoresis. denies: Fatigue - Cardiovascular Cariovascular: denies: Irregular heart rate, Palpitations, Chest pain, Syncope - Respiratory Respiratory: reports: SOB at rest, SOB with exertion - Psychiatric Psychiatric: reports: Anxiety - All Other Systems All Other Systems: reports: Reviewed and negative Prior Level of Functionality: Fully independent Exam - Vital Signs Reviewed Vital Signs: Yes Vital Signs: Vital Signs x48h Temp Pulse Pulse Resp BP BP Pulse Ox 11/28/19 20:14 37.2 C 11/28/19 20:00 76 19 148/98 H 95 11/28/19 19:00 94 17 167/114 H 95 11/28/19 18:39 36.9 C 94 19 215/123 H 97 11/28/19 18:00 91 19 216/127 H 95 11/28/19 17:30 92 16 201/128 H 93 11/28/19 17:00 88 20 233/133 H 97 11/28/19 16:30 112 H 23 223/131 H 96 11/28/19 16:00 110 H 20 223/127 H 97 11/28/19 15:31 36.5 C 108 H 14 250/139 H 94 - Physical Exam General Appearance: positive: No acute distress Eyes Bilateral: positive: Normal inspection, EOMI ENT: positive: ENT inspection nml Neck: positive: Nml inspection, Thyroid nml Respiratory: positive: Chest non-tender, No respiratory distress, Breath sounds nml Cardiovascular: positive: Regular rate & rhythm, No murmur, No gallop, Irregularly irregular Abdomen: positive: Non-tender, No organomegaly Back: positive: Nml inspection Skin: positive: Color nml Extremities: positive: Nml appearance, No pedal edema Neurologic/Psychiatric: positive: Oriented x3, CN's nml (2-12) Sepsis Event Note (H) - Evaluation Current Stage of Sepsis: Ruled out Conclusion/Plan - Problem List (1) Malignant hypertension Conclusion/Plan: Given patient's malignant hypertension with blood pressures Nourse of 200 systolic and 120 diastolic, patient was started on a Cardene drip. We will titrate this to a map of 135. Will resume home medications orally with the hope of being able to wean off the drip. Likely will be able to discharge home with a prescription for oral medications and instructions to follow-up with PCP. He has no neurological deficits are nothing to suggest hypertensive encephalopathy but will monitor for any neurological changes overnight. (2) No acute ischemic changes on electrocardiogram Conclusion/Plan: Patient has history of AR, and previous EKG changes do show lateral lead ST segment depressions, though this is more significant. However in the setting of acute malignant hypertension, with no significant chest pain and negative troponin, unlikely to be acute coronary syndrome. Will monitor serial cardiac enzymes overnight and for chest pain clinically, and repeat EKG for any clinical changes. (3) Coronary artery disease Conclusion/Plan: Continue oral aspirin, metoprolol 50 mg twice daily, lisinopril 5 mg daily.Pending clinical course consider echocardiogram prior to discharge versus outpatient. Patient would like to go home tomorrow morning as soon as possible. - Lab Results Lab results reviewed: Yes Fish Bones: 11/28/19 15:58 11/28/19 15:58 - Diagnostic Imaging Results Diagnostic Imaging Results: positive: Final report reviewed - EKG Results EKG Interpreted Independently: Yes Core Measures - Anticipated LOS I expect patient to be DC'd or transferred within 96 hours.: Yes - DVT/VTE - Prophylaxis VTE/DVT Prophylaxis med ordered at admit?: Yes - AMI - Statin at Admit Aspirin Prescribed on Admit: Yes
[2019-11-28] MEDS ORDERED: METOPROLOL TARTRATE 50 MG TABLET PO SCH (22:00)
[2019-11-29] MEDS: SODIUM CHLORIDE FLUSH 0.9% 10 ML SYRINGE IVP SCH ×2 (00:10→08:18)
[2019-11-29] MEDS: NICARDIPINE HCL 25 MG in SODIUM CHLORIDE 0.9% 240 ML IV SCH ×2 (00:10→05:50)
[2019-11-29 05:30] LABS: HGB - HEMOGLOBIN 16.4 g/dL (14.0-18.0); MEAN CORPUSCULAR HEMOGLOBIN 27.7 pg (27.0-31.0); MEAN CORPUSCULAR HGB CONC 31.5 g/dL (32.0-36.0); MEAN PLATELET VOLUME 10.2 fL (7.4-11.4); RED BLOOD COUNT 5.91 10^6/uL (4.70-6.10); RED CELL DISTRIBUTION WIDTH 12.8 % (12.0-15.0)
[2019-11-29 05:38] LABS: CALCIUM 9.1 mg/dL (8.5-10.3); CREATININE 1.2 mg/dL (0.6-1.2)
[2019-11-29] MEDS ORDERED: PANTOPRAZOLE 40 MG TABLET PO SCH (07:00)
[2019-11-29] MEDS ORDERED: lisinopriL 5 MG TABLET PO SCH ×2 (08:00→09:00)
[2019-11-29] MEDS ORDERED: METOPROLOL TARTRATE 50 MG TABLET PO SCH (08:00)
--- NOTE | 2019-11-29 08:26 | PHARMACY PROGRESS NOTE ---
- Best Possible Medication History Admit Date and Time: 11/28/19 4430 Processed by: Pharmacy Medication History completed: Yes Patient Interview: Completed Secondary Source(s): Pharmacy records, Insurance records As the person ultimately responsible for medication therapy, providers are able to order a medication from an existing home medication list in [facility] via the "Reconcile Routine" prior to Confirmation of that medication by community support associate. Such practice is discouraged except when the physician, in their clinical judgment, deems that a medical need exists for a medication without regard to previous use.
[2019-11-29] MEDS ORDERED: CLOPIDOGREL 75 MG TABLET PO SCH (09:00)
[2019-11-29] MEDS ORDERED: ASPIRIN EC 81 MG TABLET PO SCH (09:00)
[2019-11-29] MEDS ORDERED: ASPIRIN CHEW 81 MG TABLET PO SCH (09:00)
[2019-11-29] MEDS ORDERED: PNEUMOCOCCAL 13-VALENT CONJ 0.5 ML SYRINGE IM ONE (09:00)
[2019-11-29] MEDS ORDERED: ENOXAPARIN 40 MG/0.4 ML SYRINGE SUBQ SCH (09:00)
[2019-11-29 09:03] LABS: CHOL/HDL RATIO 2.9 (<5.0); CHOLESTEROL 173 mg/dL; HDL CHOLESTEROL 59 mg/dL; LDL CHOLESTEROL,CALCULATED 103 mg/dL; LDL/HDL RATIO 1.7 (<3.6); VLDL CHOLESTEROL 11 mg/dL
[2019-11-29] MEDS ORDERED: REGADENOSON 0.4 MG/5 ML SYRINGE IVP ONE ×2 (10:02→11:45)
[2019-11-29] MEDS ORDERED: AMINOPHYLLINE 250 MG/10 ML VIAL ONE (11:16)
--- NOTE | 2019-11-29 13:02 | CARDIAC PROCEDURE NOTE ---
DATE OF SERVICE: 11/29/2019 Physician: Samina Mendez MD INDICATION: Chest pain. CARDIAC RISK FACTORS: Male gender, untreated hypertension, unknown cholesterol status. The patient has known coronary disease with prior stenting in his history. PROCEDURE: After signing informed consent, the patient underwent a Lexiscan pharmaceutical stress test with nuclear myocardial perfusion imaging. RESTING HEART RATE: 61. PEAK HEART RATE: 78. RESTING BLOOD PRESSURE: 150/88. PEAK BLOOD PRESSURE: 113/79. Lexiscan was infused per protocol. The patient had brief shortness of breath and nausea. There was no chest pain. Blood pressure drop was seen, probably related to vasodilation from Lexiscan.. Oxygen saturation remained 95 to 98% on room air throughout the entire test. RESTING EKG: Normal sinus rhythm, left atrial enlargement, probable right atrial enlargement, right bundle branch block, right axis deviation, J-point elevation in the inferior leads, ST-T wave inversions in leads V1 through V3. EKG AT PEAK: No new ST segment or T-wave changes. SUMMARY 1. Abnormal resting EKG. 2. No new EKG changes to suggest ischemia during this pharmaceutical stress test. 3. Nuclear images reported separately. 4. This patient's cardiac risk based on all the above: Moderate. TD: 11/29/2019 12:56 MARTHA
--- NOTE | 2019-11-29 13:27 | Nuclear Medicine Report ---
Reason: Chest pain Procedure Date: 11/29/2019 Accession Number: [id number] / [id number] Procedure: NM - Myocardial Perfusion STR/RST CPT Code: Final Report FULL RESULT: EXAM: SINGLE-ISOTOPE PHARMACOLOGICAL STRESS TEST WITH REGADENOSON. SINGLE-ISOTOPE AND ONE-DAY REST/STRESS MYOCARDIAL PERFUSION SCANS WITH TOMOGRAPHIC IMAGING, QUANTITATIVE ANALYSIS, WALL MOTION ANALYSIS AND CALCULATION OF EJECTION FRACTION. EXAM DATE: 11/29/2019 12:34 PM. CLINICAL HISTORY: Chest pain. COMPARISON: None available. TECHNIQUE: After the intravenous administration of 9 mCi of Tc-99m sestamibi, a rest myocardial perfusion scan was done with tomography. Motion correction was applied when appropriate. After an appropriate delay, pharmacological stress was performed with the infusion of 0.4 mg regadenoson per protocol. According to protocol, 42.1 mCi of Tc-99m sestamibi was injected for stress myocardial perfusion scan. Motion correction was applied when appropriate. Gated tomographic images were obtained for wall motion analysis and computation of left ventricular ejection fraction. FINDINGS: There is decreased activity in the inferior wall which is larger and more severe on the rest images compared to the stress images. There is a smaller fixed defect in the apex. Wall motion analysis demonstrates no focal wall motion abnormality. The left ventricular end-diastolic volume is 116 cc. The left ventricular end-systolic volume is 67 cc. The left ventricular ejection fraction is calculated to be 42%. IMPRESSION: 1. Large, severe defect in the inferior wall. Larger on the rest images compared to the stress images. This could represent infarct, attenuation artifact, or a combination. Smaller fixed defect in the apex. No convincing significant reversible perfusion defects. 2. Left ventricular ejection fraction of 42%. 3. Normal segmental and global wall motion. 4. Normal left ventricular cavity size, no change with stress. Please correlate findings with stress ECG tracings and procedure notes. RADIA The call report notification system was initiated by Dr. Amish Lei at 01:25 PM on 11/29/2019. The above call report findings were discussed with Dr. Mendez by Dr. Amish Lei at 01:26 PM on 11/29/2019.
--- NOTE | 2019-11-29 13:35 | Discharge Plan ---
Discharge Plan Problem Reviewed?: Yes Disposition: Home, Self Care Condition: Stable Prescriptions: Nitroglycerin [Nitrostat] 0.4 mg SL Q5MIN PRN #100 tablet PRN Reason: Chest Pain Aspirin EC [Ecotrin] 325 mg PO DAILY #30 tablet Atorvastatin [Lipitor] 40 mg PO QPM #30 tablet lisinopriL [Zestril] 5 mg PO 0800 #30 tablet Metoprolol Succinate 50 mg PO DAILY #30 tab.er.24h Diet: Low Sodium Activity Restrictions: Activity as Tolerated Shower Restrictions: No Driving Restrictions: No Instruction Topics: Angina, Nitroglycerin Fast Acting, ED HTN Established Health Concerns: You were in Observation status to evaluate and manage your severely high blood pressure and the chest discomfort. The EKG, blood tests and stress test imaging showed that you have had a prior heart attack of the bottom and back of your heart, we cannot tell when it occurred, but a scar is seen indicating past heart damage. It is dangerous for you to be without medications for your high blood pressure plus aspirin for your coronary stents. Prescriptions for new (restarted) medications have been electronically prescribed to your [facility] in [place]. You need to take these medications lifelong, unless told to stop by your Primary Care Provider or Viticulturist. Eat a low salt, low fat diet. A new PCP and first appointment has been arranged for you by our Discharge Nurse, keep that appointment. Plan of Treatment: As above. Care Goals: Improvement in your blood pressure and your symptoms, and stabilization are the goals. Assessment: The patient understands. Additional Instructions or Follow Up instructions: If you have new or worsening symptoms, call your PCP for advice or come to the ER. You qualify for attending cardiac rehab classes here (when the overall nationwide restrictions are lifted). Your PCP or Viticulturist can order this. Follow-Up Care: [facility] No Smoking: If you smoke, Please STOP! Call for help.
--- NOTE | 2019-11-29 13:51 | DISCHARGE SUMMARY ---
Discharge Summary Admit Date: 11/28/19 Discharge Date: 11/29/19 Discharging Provider: Dr Samina Mendez Primary Care Provider: Natividad Valles NP Condition at Discharge: Stable Discharge Disposition: 01 Home, Self Care - HPI History of Present Illness: From the admission H&P of Dr Derrek Lopez: Patient is a 59-year-old male of [place] origin, with a past medical history of GA and coronary stenting done about 3 years ago, as well as hypertension who presents to the emergency department after checking his blood pressure at home and finding it to be very elevated in the neighborhood of greater than 220 systolic. He states that for the last 1 month his PCP office has been closed so he is run out of his blood pressure medications and has not been able to take any. He presented to the emergency room for evaluation of the blood pressure, and is inconsistent with respect to symptoms initially stating he had no symptoms whatsoever. When inquired about why he checked his blood pressure this morning in the first place he states he checks it when he feels unwell, further adding that he generally felt a little bit off this morning complaining of diaphoresis and anxiety which have since resolved. In the emergency room, he initially did not report any chest pain, but only after inquiring he stated he maybe had a tiny bit of chest discomfort but did not complain of this actively. Initially in the emergency department, plans were to provide oral medications for the patient to control his blood pressure and send him home however an EKG was done showing some significant ST segment depressions, in diffuse leads. Troponin was initially done and reported at 61.5. Observation was requested to manage the patient's significantly elevated blood pressure and to cycle troponin levels. - CONSULTS | PROCEDURES Procedures: Pharmaceutical stress test - HOSPITAL COURSE Hospital Course: 1) Malignant HTN He was started on an iv Nicardipine drip and placed in Observation in the ICU. His home meds were resumed. BP improved to 140's/80's by the next morning, even with Nicardipine weaned to off. He admitted to the [employer] that he ate alot of salty food, and was advised to stop that. He was sent home with fresh prescriptions for antihypertensive meds. 2) Chest pain His troponins were cycled and remained relatively "flat" at 60>> 65>> 79>> 80. When his BP improved the next morning, he underwent a pharmacologic stress test. There were no new changes on his (abnormal resting) EKG during the stress test. The nuclear scans showed a fixed apical and inferior defect and no areas of reversible ischemia, LVEF was abnormal at 42%. He was discharged on new Metoprolol Succinate 50 mg, Lisinopril 5 mg daily, daily aspirin, nightly Lipitor and new prn Nitrostat. 3) Old GA After the stress nuclear scan was read as having a fixed defect, he was asked if he knew he had a prior GA, he answered yes. It was advised that he not stop taking his cardiac meds unless told to do so by a Provider. His fasting lipids had an LDL of 107. Lipitor was restarted. 4) Non-compliance with medications He told the admission team that he ran out of meds 1 month ago. Our hospital Pharmacist reconciled his meds with his pharmacy and learned that he had not picked up any meds for a year. When asked if being off meds was closer to 12 mos, he admitted that yes, and said he had no PCP for giving refills. The and [facility] RN, obtained a new appointment for him with Natividad Valles NP, for next week, that he was advised to keep. 5) Tobacco use He was on a Nicotine patch while here. Smoking cessation was advised, given his CAD and GA history. 6) Moderate protein-calorie malnutrition He lost 30 lbs over the previous 5 mos, and the [employer] discussed this with him and he thinks his intake is not good due possibly to depression, which needs to be addressed by the new PCP. - ALLERGIES Allergies/Adverse Reactions: Allergies Allergy/AdvReac Type Severity Reaction Status Date / Time No Known Drug Allergies Allergy Verified 11/28/19 15:31 - MEDICATIONS Home Medications: Ambulatory Orders Medication Instructions Recorded Confirmed Aspirin EC [Ecotrin] 325 mg PO DAILY #30 tablet 11/29/19 Atorvastatin [Lipitor] 40 mg PO QPM #30 tablet 11/29/19 Metoprolol Succinate 50 mg PO DAILY #30 tab.er.24h 11/29/19 Nitroglycerin [Nitrostat] 0.4 mg SL Q5MIN PRN #100 tablet 11/29/19 lisinopriL [Zestril] 5 mg PO 0800 #30 tablet 11/29/19 - PHYSICAL EXAM AT DISCHARGE General Appearance: positive: No acute distress, Alert Eyes Bilateral: positive: Normal inspection, EOMI ENT: positive: ENT inspection nml, No signs of dehydration Neck: positive: Nml inspection, No JVD Respiratory: positive: No respiratory distress, Breath sounds nml Cardiovascular: positive: Regular rate & rhythm, No murmur Abdomen: positive: Non-tender, No distention Skin: positive: Color nml Extremities: positive: Non-tender, No pedal edema Neurologic/Psychiatric: positive: Oriented x3, Other (Non-focal ) - LABS Result Diagrams: 11/29/19 05:09 11/29/19 05:09 - DIAGNOSTIC IMAGING Diagnostic Imaging Results: Final report reviewed, Discussed with radiologist - SEPSIS Current Stage of Sepsis: Ruled out - FOLLOW UP Follow Up: Appointment with new PCP, Natividad Valles NP on 12/08/19. - TIME SPENT Time Spent in Discharge (Minutes): 45
[2019-11-29 14:52] VITALS: BP 133/87
[2019-11-29] MEDS ORDERED: ATORVASTATIN 40 MG TABLET PO SCH (21:00)
== END 2019-11-29 14:55 | disposition home or self-care (01) | DRG 305 ==
LOC: ED 15:18 → ICU 17:51
PROVIDERS: ADMIT Internal Medicine; ATTEND Internal Medicine
DX: I10 Essential (primary) hypertension (principal); E44.0 Moderate protein-calorie malnutrition; R07.9 Chest pain, unspecified; R94.31 Abnormal electrocardiogram [ECG] [EKG]; I25.10 Atherosclerotic heart disease of native coronary artery without angina pectoris; F17.200 Nicotine dependence, unspecified, uncomplicated; K21.9 Gastro-esophageal reflux disease without esophagitis; T46.4X6A Underdosing of angiotensin-converting-enzyme inhibitors, initial encounter; Y92.009 Unspecified place in unspecified non-institutional (private) residence as the place of occurrence of the external cause; I25.2 Old myocardial infarction; Z95.5 Presence of coronary angioplasty implant and graft; Z72.89 Other problems related to lifestyle; Z79.82 Long term (current) use of aspirin; Z68.23 Body mass index [BMI] 23.0-23.9, adult
CPT/HCPCS: 36415; 71045; 78452; 80048; 80053; 80061; 81001; 83690; 83735; 84443; 84484; 85025; 85027; 87150; 93005; 93017; A9270; A9500; J1650; J2785; 83721; 90670

== ENCOUNTER 2021-11-02 15:50 | Outpatient (CLI) | payer MEDICAID | END 2021-11-02 15:51 | disposition short-term general hospital (02) | LOC: EMS 15:50 | DX: I21.19 ST elevation (STEMI) myocardial infarction involving other coronary artery of inferior wall (principal) | CPT/HCPCS: A0425; A0427; A0999 ==